=== PATIENT | male | born 1990 ===

== ENCOUNTER 2025-09-10 08:43 | Outpatient (REF) | payer BC, SELFPAY ==
[2025-09-10 14:41] LABS: HCT 39.5 % (40.0-50.0); HGB 13.3 g/dL (13.5-17.5); MCH 30.5 pg (27.0-33.0); MCHC 33.7 % (32.0-36.0); MCV 91 fL (80-95); MPV 10.4 fL (8.0-11.0); Platelet Count 217 10^3/uL (130-400); RBC 4.36 10^6/uL (4.36-5.78); RDW 11.2 % (11.8-14.1); RDW-SD 37.0 fL; WBC 6.31 10^3/uL (4.4-10.8)
[2025-09-10 15:18] LABS: ALT 21 U/L (16-63); AST 18 U/L (15-37); Albumin 4.3 g/dL (3.4-5.0); Alkaline Phosphatase 74 U/L (46-116); Anion Gap 8.3 mmol/L (3-11); BUN 27 mg/dL (7-18); Bilirubin, Total 0.3 mg/dL (0.2-1.0); CO2 27.7 mmol/L (21.0-32.0); Calcium 9.2 mg/dL (8.5-10.1); Calculated LDL 99 mg/dL (<100); Chloride 103 mmol/L (98-107); Cholesterol 152 mg/dL (<200); Estimated GFR 89.78 (mL/min/1.73m2); Glucose 87 mg/dL (74-106); HDL Cholesterol 42 mg/dL (>or=40); Potassium 3.7 mmol/L (3.5-5.1); Sodium 139 mmol/L (136-145); TSH 1.62 uIU/mL (0.36-3.74); Total Protein 7.3 g/dL (6.4-8.2); Triglyceride 58 mg/dL (<150)
[2025-09-10 22:03] LABS: T3,Free 3.9 pg/mL (2.8-5.3)
== END 2025-09-10 08:44 | disposition home or self-care (01) ==
LOC: NCHCN 08:43
PROVIDERS: Visit Provider Physician Assistant
DX: Z13.220 Encounter for screening for lipoid disorders (principal); Z13.29 Encounter for screening for other suspected endocrine disorder; Z13.6 Encounter for screening for cardiovascular disorders; Z13.0 Encounter for screening for diseases of the blood and blood-forming organs and certain disorders involving the immune mechanism
CPT/HCPCS: 80053; 80061; 85027; 84439; 84443; 84481